=== PATIENT | female | born 1975 | race Caucasian/White ===

== ENCOUNTER 2022-07-21 15:33 | Outpatient (CLI) | payer MEDICARE, MEDICAID, SELFPAY ==
[2022-07-21 22:55] LABS: Basophils Absolute Auto 0.04 K/uL (0.00-0.30); Basophils Percent Auto 0.5 % (0.0-3.0); Eosinophils Absolute Auto 0.17 K/uL (0.00-0.50); Eosinophils Percent Auto 2.1 % (0.0-7.0); Hematocrit 44.9 % (33.0-51.0); Hemoglobin* 15.1 gm/dL (12.0-16.0); Immature Granulocytes Abs Auto 0.02 K/uL (0.00-0.30); Immature Granulocytes Pct Auto 0.3 %; Lymphocytes Absolute Auto 2.06 K/uL (0.90-2.90); Lymphocytes Percent Auto 25.8 % (20-44); Mean Corpuscular HGB Conc 34 gm/dL (32-36); Mean Corpuscular Hemoglobin 30 pg (26-34); Mean Corpuscular Volume 90 fL (80-100); Monocytes Percent Auto 10.6 % (0.0-11.0); Neutrophils Absolute Auto 4.86 K/uL (1.7-7.0); Neutrophils Percent Auto 60.7 % (42.0-72.0); Platelet Count* 306 K/uL (140-440); RDW Coefficient of Variation % 11.9 % (11.5-15.5)
[2022-07-21 22:57] LABS: Slide Review Reflex No
[2022-07-21 23:23] LABS: Albumin* 4.1 g/dL (3.3-5.0); Chloride* 107 mmol/L (96-114)
[2022-07-21 23:24] LABS: Potassium* 3.8 mmol/L (3.6-5.1); Sodium* 138 mmol/L (135-149)
[2022-07-21 23:26] LABS: Alkaline Phosphatase* 70 U/L (40-150); Aspartate Amino Transferase* 43 U/L (12-35); Bilirubin Total* 0.4 mg/dL (0.1-1.5); Blood Urea Nitrogen* 15 mg/dL (5-24); Carbon Dioxide* 24 mmol/L (20-32); Cholesterol* 156 mg/dL (90-199); Creatinine* 0.7 mg/dL (0.5-1.5); Estimated Glomerular Filt Rate 107 ml/min; Total Protein* 6.7 g/dL (6.0-8.3)
[2022-07-21 23:27] LABS: Alanine Aminotransferase* 16 U/L (4-35); Glucose* 87 mg/dL (60-115); HDL Cholesterol* 36 mg/dL (>=50); LDL Cholesterol Calculated 88 mg/dL (<100); Magnesium* 1.8 mg/dL (1.5-2.6); Triglycerides* 161 mg/dL (40-149)
[2022-07-21 23:36] LABS: Vitamin D 25 Hydroxy* 48 ng/mL (30-80)
[2022-07-22 00:27] LABS: Calcium* 8.4 mg/dL (8.4-10.6)
== END 2022-07-21 15:34 | disposition home or self-care (01) ==
PROVIDERS: Visit Provider Family Medicine
DX: R53.83 Other fatigue (principal); E55.9 Vitamin D deficiency, unspecified; I10 Essential (primary) hypertension; Z13.6 Encounter for screening for cardiovascular disorders
CPT/HCPCS: 80053; 80061; 82306; 83735; 84443; 85025

== ENCOUNTER 2024-01-18 11:12 | Outpatient (CLI) | payer MEDICARE, SELFPAY ==
--- NOTE | 2024-01-18 11:30 | CRLHL7_ITS ---
For Patients: As a result of the Century Cures Act, medical imaging exams and procedure reports are released immediately into your electronic medical record. You may view this report before your referring provider. If you have questions, please contact your health care provider. BILATERAL SCREENING MAMMOGRAM WITH COMPUTER-AIDED DETECTION AND TOMOSYNTHESIS TECHNIQUE: CC and MLO views were obtained. These mammographic images have been obtained using full-field digital technique. These mammographic images were interpreted with the benefit of computer-aided detection. Breast Tomosynthesis was used in this interpretation. COMPARISON FILM: Baseline. FINDINGS: There are scattered areas of fibroglandular density IMPRESSION: There is no radiographic evidence for malignancy. ASSESSMENT: BI-RADS Category 1: Negative RECOMMENDATION: Routine screening mammogram in 1 year. A lay language report of this examination will be provided to the patient. CARLEEN MOODY M.D. Diagnostic/Nuclear Medicine Radiologist [email or web address] KAYDEN:[email or web address] Transcribed: 12:47 p.mMarino kaminski/Dictated by: Carleen Moody MD @ 01/21/2024 8:41:00 AM (Electronically Signed)
== END 2024-01-18 11:13 | disposition home or self-care (01) ==
PROVIDERS: PCP Family Medicine; Visit Provider Family Medicine
DX: Z12.31 Encounter for screening mammogram for malignant neoplasm of breast (principal)
CPT/HCPCS: 77063; 77067

== ENCOUNTER 2024-06-20 13:36 | Outpatient (REF) | payer MEDICARE, SELFPAY ==
[2024-06-20 14:19] LABS: Lipase* 63 U/L (23-300)
[2024-06-20 14:34] LABS: Hemoglobin A1C* 5.4 % (0-5.6)
== END 2024-06-20 13:37 | disposition home or self-care (01) ==
LOC: NPINS 13:36
PROVIDERS: PCP Family Medicine; Visit Provider Nurse Practitioner Psychiatric/Mental Health
DX: F33.1 Major depressive disorder, recurrent, moderate (principal); Z13.1 Encounter for screening for diabetes mellitus
CPT/HCPCS: 83036; 83690

== ENCOUNTER 2024-08-25 11:23 | Outpatient (CLI) | payer MEDICARE, SELFPAY | END 2024-08-25 11:24 | disposition home or self-care (01) | LOC: FBOREF 11:24 | PROVIDERS: PCP Family Medicine; Visit Provider Family Medicine | DX: E78.5 Hyperlipidemia, unspecified (principal); Z13.6 Encounter for screening for cardiovascular disorders | CPT/HCPCS: 80061 ==

== ENCOUNTER 2024-10-25 16:24 | Outpatient (CLI) | payer MEDICARE, SELFPAY | END 2024-10-25 16:25 | disposition home or self-care (01) | PROVIDERS: PCP Family Medicine; Visit Provider Family Medicine | DX: I10 Essential (primary) hypertension (principal); R53.83 Other fatigue; Z13.21 Encounter for screening for nutritional disorder | CPT/HCPCS: 80048; 82607; 84443; 85025 ==

== ENCOUNTER 2025-06-15 09:23 | Outpatient (CLI) | payer OTHER, SELFPAY | END 2025-06-15 09:24 | disposition home or self-care (01) | PROVIDERS: PCP Family Medicine; Visit Provider Family Medicine | DX: Z01.818 Encounter for other preprocedural examination (principal); R53.83 Other fatigue | CPT/HCPCS: 80048; 85025 ==